=== PATIENT | female | born 1960 | race Caucasian/White ===

== ENCOUNTER 2017-08-01 16:36 | Emergency (ER) | payer OTHER ==
[~2017-08-01] VITALS: Ht 167.6 cm; Wt 69.0 kg
[2017-08-01 16:52] VITALS: BP 149/81; PULSE 83; RESP 17; TEMP 97.8; O2SAT 98
[2017-08-01] MEDS ORDERED: SODIUM CHLOR 0.9% 1000 ML INJ 1,000 ML IV SCH (16:58)
[2017-08-01 17:00] VITALS: RESP 18; O2SAT 98
[2017-08-01] MEDS ORDERED: SODIUM CHLORIDE 0.9% FLUSH 5 ML FLUSH IV FLUSH PRN (17:00)
[2017-08-01] MEDS ORDERED: ONDANSETRON HCL 4 MG/2 ML VIAL IV PUSH ONE ×2 (17:00→22:00)
--- NOTE | 2017-08-01 17:07 | PD ---
HPI Chief Complaint: alcohol intoxication Time Seen by Provider: 16:57 Travel History International Travel<30 days: No Contact w/Intl Traveler<30days: No History of Present Illness HPI Patient comes in by EMS after being found intoxicated at a local motel. Per EMS patient had not checked out of the hotel and the hotel or motel room service supervisor found her unconscious in the room. Per EMS patient admits to drinking a lot of vodka today and was asking to go to [facility]. EMS noted patient's blood sugar was found to be 47 and gave amp of D 10 allowing the patient to become more alert. Patient tells me she is uncertain as to how much she drinks. Denies any history of diabetes but does admit to history of hypertension. Patient is asking for water. Patient is heavily intoxicated with alcohol noted on breath slurring her speech thus limiting H&P. PFSH Past Medical History Anxiety: Yes GERD: Yes Hypertension: Yes Thyroid Disease: Yes Past Surgical History Other Surgery: Yes (breast lift) Social History Alcohol Use: Yes Tobacco Use: No Substance Use: No Allergies-Medications (Allergen,Severity, Reaction): Coded Allergies: Bleach (Sodium Hypochlorite) (Verified Allergy, Intermediate, Hives, ) Reported Meds & Prescriptions Reported Meds & Active Scripts Active Active Prescriptions or Reported Medications Unobtainable Review of Systems ROS Limitations: Intoxication Except as stated in HPI: all other systems reviewed are Neg Physical Exam Exam Limitations: Intoxication Narrative GENERAL: Well-developed, well nourished, in no acute distress, and non-ill appearing. Alcohol noted on breath. SKIN: Focused skin assessment warm and dry. HEAD: Atraumatic. Normocephalic. EYES: Pupils equal and round. EOMI. No scleral icterus. No injection or drainage. ENT: No nasal bleeding or discharge. Mucous membranes pink and moist. NECK: Trachea midline. No JVD. Supple. No nuclear rigidity. CARDIOVASCULAR: Regular rate and rhythm. No murmur appreciated. RESPIRATORY: No accessory muscle use. No respiratory distress. Clear to auscultation. Breath sounds equal bilaterally. GASTROINTESTINAL: Abdomen soft, non-tender, nondistended, and no guarding. Hepatic and splenic margins not palpable. Normal bowel sounds 4. No pulsatile mass. MUSCULOSKELETAL: No obvious deformities. No clubbing. No cyanosis. No edema. Full range of motion. NEUROLOGICAL: Awake and alert. No obvious cranial nerve deficits. Motor grossly within normal limits. Slurring speech. PSYCHIATRIC: Appropriate mood and affect; insight and judgment normal. Data Data Last Documented VS Vital Signs Date Time Temp Pulse Resp B/P (MAP) Pulse Ox O2 Delivery O2 Flow Rate FiO2 08/02/17 03:54 08/01/17 19:25 87 18 97 Room Air 08/01/17 18:21 97.8 Orders Orders Electrocardiogram (08/01/17 16:58) Complete Blood Count With Diff (08/01/17 16:58) Comprehensive Metabolic Panel (08/01/17 16:58) Creatine Kinase (Cpk) (08/01/17 16:58) Prothrombin Time / Inr (Pt) (08/01/17 16:58) Act Partial Throm Time (Ptt) (08/01/17 16:58) Troponin I (08/01/17 16:58) Urinalysis - C+S If Indicated (08/01/17 16:58) Chest, Single Ap (08/01/17 16:58) Ct Brain W/O Iv Contrast(Rout) (08/01/17 16:58) Blood Glucose (08/01/17 16:58) Ecg Monitoring (08/01/17 16:58) Iv Access Insert/Monitor (08/01/17 16:58) Oximetry (08/01/17 16:58) Sodium Chloride 0.9% Flush (Ns Flush) (08/01/17 17:00) Sodium Chlor 0.9% 1000 Ml Inj (Ns 1000 M (08/01/17 16:58) Ondansetron Inj (Zofran Inj) (08/01/17 17:00) Lipase (08/01/17 16:58) Alcohol (Ethanol) (08/01/17 17:09) Drug Screen, Random Urine (08/01/17 17:09) Salicylates (Aspirin) (08/01/17 17:09) Tylenol (Acetaminophen) (08/01/17 17:09) CKMB (08/01/17 17:09) CKMB% (08/01/17 17:09) Magnesium (Mg) (08/01/17 18:47) Calcium Gluconate Inj (Calcium Gluconate (08/01/17 19:00) Thiamine Inj (Thiamine Inj) (08/01/17 19:00) Calcium Gluconate Inj (Calcium Gluconate (08/01/17 20:00) Ondansetron Inj (Zofran Inj) (08/01/17 22:00) Labs Laboratory Tests Test 08/01/17 17:00 08/01/17 17:09 08/01/17 17:40 Salicylates Level 2.2 MG/DL Acetaminophen Level 3.1 MCG/ML Ethyl Alcohol Level 465 MG/DL White Blood Count 5.4 TH/MM3 Red Blood Count 3.46 MIL/MM3 Hemoglobin 9.7 GM/DL Hematocrit 30.3 % Mean Corpuscular Volume 87.6 FL Mean Corpuscular Hemoglobin 28.1 PG Mean Corpuscular Hemoglobin Concent 32.0 % Red Cell Distribution Width 20.4 % Platelet Count 274 TH/MM3 Mean Platelet Volume 7.4 FL Neutrophils (%) (Auto) 80.8 % Lymphocytes (%) (Auto) 14.3 % Monocytes (%) (Auto) 4.4 % Eosinophils (%) (Auto) 0.1 % Basophils (%) (Auto) 0.4 % Neutrophils # (Auto) 4.4 TH/MM3 Lymphocytes # (Auto) 0.8 TH/MM3 Monocytes # (Auto) 0.2 TH/MM3 Eosinophils # (Auto) 0.0 TH/MM3 Basophils # (Auto) 0.0 TH/MM3 CBC Comment DIFF FINAL Differential Comment Prothrombin Time 9.6 SEC Prothromb Time International Ratio 0.9 RATIO Activated Partial Thromboplast Time 24.7 SEC Blood Urea Nitrogen 24 MG/DL Creatinine 0.80 MG/DL Random Glucose 131 MG/DL Total Protein 6.1 GM/DL Albumin 3.0 GM/DL Calcium Level 7.0 MG/DL Alkaline Phosphatase 87 U/L Aspartate Amino Transf (AST/SGOT) 181 U/L Alanine Aminotransferase (ALT/SGPT) 70 U/L Total Bilirubin 0.2 MG/DL Sodium Level 140 MEQ/L Potassium Level 3.6 MEQ/L Chloride Level 103 MEQ/L Carbon Dioxide Level 19.0 MEQ/L Anion Gap 18 MEQ/L Estimat Glomerular Filtration Rate 75 ML/MIN Protein Corrected Calcium 7.5 MG/DL Magnesium Level 2.1 MG/DL Total Creatine Kinase 643 U/L Creatine Kinase MB 5.3 NG/ML Creatine Kinase MB % 0.8 % Troponin I 0.02 NG/ML Lipase 239 U/L Urine Color YELLOW Urine Turbidity CLEAR Urine pH 6.0 Urine Specific [place] 1.011 Urine Protein TRACE mg/dL Urine Glucose (UA) NEG mg/dL Urine Ketones 10 mg/dL Urine Occult Blood SMALL Urine Nitrite NEG Urine Bilirubin NEG Urine Urobilinogen LESS THAN 2.0 MG/DL Urine Leukocyte Esterase NEG Urine RBC 1 /hpf Urine WBC 3 /hpf Urine Squamous Epithelial Cells <1 /hpf Microscopic Urinalysis Comment CATH-CULT NOT IND Urine Opiates Screen NEG Urine Barbiturates Screen NEG Urine Amphetamines Screen NEG Urine Benzodiazepines Screen POS Urine Cocaine Screen NEG Urine Cannabinoids Screen NEG MDM Medical Decision Making Medical Screen Exam Complete: Yes Emergency Medical Condition: Yes Interpretation(s) EKG reviewed by Dr. Logan shows normal sinus rhythm with a ventricular rate is 79. No STEMI. Chest x-ray read by the radiologist shows: Small area of linear atelectasis at the right lung base. The lungs are otherwise clear. CT of the head read by the radiologist shows: Normal examination. Differential Diagnosis Alcohol intoxication, alcohol abuse, electrolyte abnormality, dehydration, pneumonia, intracranial hemorrhage, UTI, other Narrative Course Patient was seen and examined. Initial laboratory looks studies were ordered. Patient was hydrated with IV fluid. 1750 patient reassessed patient's more weak now states that she started drinking yesterday after relapsing. X-ray and laboratory values were reviewed. Patient was given a dose of thiamine and calcium gluconate IV. Patient will be monitored in the emergency department until clinically sober and able to ambulate on their own or until a sober responsible adult comes to pick them up. RN is aware of this. Patient can be reassessed at that time as well. Diagnosis Primary Impression: Alcohol intoxication Qualified Codes: F10.920 - Alcohol use, unspecified with intoxication, uncomplicated Referrals: [facility] Patient Instructions: Alcohol Intoxication (ED), General Instructions Additional Instructions: Follow-up with your primary care physician and/or [facility] for detox. Return to the emergency department for any emergent concerns. Scripts Unable to Obtain Active Prescriptions or Reported Meds Disposition: 01 DISCHARGE HOME Condition: Stable Clark Jerez Aug 01, 2017 17:07
--- NOTE | 2017-08-01 17:29 | RADRPT ---
EXAM DATE/TIME: 08/01/2017 17:13 [facility] COMPARISON: No previous studies available for comparison. INDICATIONS : Wheezing. Short of breath. MEDICAL HISTORY : Unobtainable. SURGICAL HISTORY : Unobtainable. ENCOUNTER: Initial ACUITY: 1 day PAIN SCORE: Non-responsive. LOCATION: Bilateral chest FINDINGS: The heart is normal in size. There is a smaller area of atelectasis at the right lung base. The lungs are otherwise clear. The visualized bony structures are grossly intact. CONCLUSION: 1. Small area of linear atelectasis at the right lung base. The lungs are otherwise clear. Rahul Harrison MD on August 01, 2017 at 17:28 Board Certified Radiologist. This report was verified electronically.
[2017-08-01 17:40] LABS: AUTOMATED NEUTROPHIL # 4.4 TH/MM3 (1.8-7.7); BASOPHIL % 0.4 % (0.0-2.0); EOSINOPHIL % 0.1 % (0.0-4.0); HEMATOCRIT 30.3 % (35.0-46.0); HEMO FLAGS DIFF FINAL; LYMPH % 14.3 % (9.0-44.0); LYMPHOCYTE # 0.8 TH/MM3 (1.0-4.8); MEAN CELL VOLUME 87.6 FL (80.0-100.0); MEAN CORPUSCULAR HEMOGLOBIN 28.1 PG (27.0-34.0); MONO % 4.4 % (0.0-8.0); NEUT % 80.8 % (16.0-70.0); PLATELET COUNT 274 TH/MM3 (150-450); RED BLOOD COUNT 3.46 MIL/MM3 (4.00-5.30); RED CELL DISTRIBUTION WIDTH 20.4 % (11.6-17.2); WHITE BLOOD COUNT 5.4 TH/MM3 (4.0-11.0)
[2017-08-01 17:46] LABS: APTT (PATIENT) 24.7 SEC (24.3-30.1); INTERNATIONAL NORMALIZED RATIO 0.9 RATIO; PROTHROMBIN TIME - PATIENT 9.6 SEC (9.8-11.6)
--- NOTE | 2017-08-01 17:46 | RADRPT ---
EXAM DATE/TIME: 08/01/2017 17:29 [facility] COMPARISON: No previous studies available for comparison. INDICATIONS : Altered mental status. RADIATION DOSE: 56.35 CTDIvol (mGy) MEDICAL HISTORY : None SURGICAL HISTORY : None. ENCOUNTER: Initial ACUITY: 1 day PAIN SCALE: 0/10 LOCATION: cranial TECHNIQUE: Multiple contiguous axial images were obtained of the head. Using automated exposure control and adj ustment of the mA and/or kV according to patient size, radiation dose was kept as low as reasonably a chievable to obtain optimal diagnostic quality images. DICOM format image data is available electro nically for review and comparison. FINDINGS: CEREBRUM: The ventricles are normal for age. No evidence of midline shift, mass lesion, hemorrhage or acute in farction. No extra-axial fluid collections are seen. POSTERIOR FOSSA: The cerebellum and brainstem are intact. The 4th ventricle is midline. The cerebellopontine angle i s unremarkable. EXTRACRANIAL: The visualized portion of the orbits is intact. SKULL: The calvaria is intact. No evidence of skull fracture. CONCLUSION: Normal examination. Micky Brush MD on August 01, 2017 at 17:44 Board Certified Radiologist. This report was verified electronically.
[2017-08-01 17:53] LABS: POTASSIUM 3.6 MEQ/L (3.5-5.1)
[2017-08-01 17:57] LABS: CALCIUM-PROTEIN CORRECTED 7.5 MG/DL (8.5-10.1); TOTAL BILIRUBIN ADULT 0.2 MG/DL (0.2-1.0)
[2017-08-01 18:10] LABS: CKMB 5.3 NG/ML (0.5-3.6)
[2017-08-01 18:21] VITALS: BP 162/78; PULSE 87; RESP 16; TEMP 97.8; O2SAT 99
[2017-08-01 18:24] LABS: BLOOD, URINE SMALL (NEG); GLUCOSE,URINE NEG (NEG); KETONE, URINE 10 mg/dL (NEG); NITRITE,URINE NEG (NEG); SQUAMOUS EPITHELIAL CELL URINE <1 /hpf (0-5); URINE COLOR YELLOW (YELLW/STRAW)
[2017-08-01 18:25] LABS: COMMENT (UR) CATH-CULT NOT IND; CULTURE IF INDICATED CATH CULTURE NOT IND
[2017-08-01 18:48] LABS: ACETAMINOPHEN 3.1 MCG/ML (10.0-30.0)
[2017-08-01] MEDS ORDERED: CALCIUM GLUCONATE 10% 1 GM/10 ML VIAL IV PUSH ONE (19:00)
[2017-08-01] MEDS ORDERED: THIAMINE INJ 100 MG in SODIUM CHLORIDE 0.9% INJ 100 ML IV ONE (19:00)
[2017-08-01 19:25] VITALS: BP 152/76; PULSE 87; RESP 18; O2SAT 97
[2017-08-01] MEDS ORDERED: CALCIUM GLUCONATE INJ 1 GM in SODIUM CHLORIDE 0.9% INJ 100 ML IV ONE (20:00)
--- NOTE | 2017-08-02 15:13 | EKG ---
Date Performed: 08/01/2017 Time Performed: 17:25:06 PTAGE: 56 years EKG: Sinus rhythm NONSPECIFIC T-WAVE ABNORMALITY BORDERLINE ECG NO PREVIOUS TRACING DOCTOR: Rosalia Felder Interpretating Date/Time 08/02/2017 15:11:40
== END 2017-08-02 03:55 | disposition home or self-care (01) ==
LOC: NEPE 16:36
DX: F10.920 Alcohol use, unspecified with intoxication, uncomplicated (principal); E16.2 Hypoglycemia, unspecified; I10 Essential (primary) hypertension; K21.9 Gastro-esophageal reflux disease without esophagitis; E03.9 Hypothyroidism, unspecified; R94.31 Abnormal electrocardiogram [ECG] [EKG]
CPT/HCPCS: 70450; 71010; 80053; 80307; 81001; 82550; 82552; 83690; 83735; 84484; 85025; 85610; 85730; 93005; 96361; 96365; 96375; 99285; J0610; J2405; J3411; J7030

== ENCOUNTER 2017-08-02 03:57 | Emergency (ER) | payer OTHER ==
[~2017-08-02] VITALS: Ht 170.2 cm; Wt 66.0 kg
[2017-08-02 03:59] VITALS: BP 183/92; PULSE 101; RESP 16; TEMP 98.1; O2SAT 97
[2017-08-02] MEDS ORDERED: chlordiazePOXIDE 25 MG CAP PO STA (04:51)
--- NOTE | 2017-08-02 05:07 | PD ---
HPI Chief Complaint: Medical Clearance Time Seen by Provider: 04:24 Travel History International Travel<30 days: No Contact w/Intl Traveler<30days: No Traveled to known affect area: No History of Present Illness HPI The patient is a 56 year old female who presents to the [facility] emergency department with a history of reportedly requesting detoxification. The patient reports that she had been clean and sober for 2 years. She reports that she relapsed 2 weeks ago. She reports that she began to drink quite heavily on Monday night. The patient was seen earlier today requesting detox. The patient was evaluated by Carlos, the physician patent legal assistant and a complete workup was done. The patient was noted by ambulance services and she was transported to this facility to have hypoglycemia with a blood sugar of 47. The patient was given D10. The patient continued to be euglycemic during her emergency department evaluation. She had electrolyte abnormalities that were treated by him. The patient's alcohol level at that time was noted to be 465. The patient reports that she is homeless. The patient additionally reports that she has a history of anxiety disorder. On review of systems, the patient denies any recent fevers, cough, congestion, neck pain, abdominal pain, vomiting , diarrhea, urinary symptoms, or neurologic symptoms. The patient reports that she does have chest pain, palpitations, and shortness of breath whenever she has anxiety attacks. The patient was discharged from the emergency department a few minutes ago and then decided to sign back in to the emergency department as she reports that she has no place to go. [facility] Past Medical History Narrative Medical The patient's past medical history is significant for anxiety disorder, tinnitus , acid reflux, hypertension, hypothyroid disorder. Diminished Hearing: No Hypertension: Yes Medical other: Yes (TINNITUS) ?: Not Menopausal: Yes Past Surgical History Narrative Surgical The patient's past surgical history is significant for an ulnar nerve surgery, breast surgery. Tonsillectomy: Yes Other Surgery: Yes (BREAST REDUCTION) Social History Alcohol Use: Yes (EVERY DAY ) Tobacco Use: No Substance Use: No (PT DENIES ) Allergies-Medications (Allergen,Severity, Reaction): Coded Allergies: Bleach (Sodium Hypochlorite) (Verified Allergy, Intermediate, Hives, ) Reported Meds & Prescriptions Reported Meds & Active Scripts Active Active Prescriptions or Reported Medications Unobtainable Narrative Medication The patient reports that she is normally on propranolol, [place] Thyroid, clonidine Review of Systems General / Constitutional: No: Fever Eyes: No: Visual changes HENT: No: Headaches Cardiovascular: No: Chest Pain or Discomfort Respiratory: No: Shortness of Breath Gastrointestinal: No: Abdominal Pain Genitourinary: No: Dysuria Musculoskeletal: No: Pain Skin: No Rash Neurologic: Positive: Tremor, No: Weakness, Focal Abnormalities, Change in Mentation, Slurred Speech, Sensory Disturbance Psychiatric: Positive: Anxiety, Substance Abuse, No: Depression Endocrine: No: Polydipsia Hematologic/Lymphatic: No: Easy Bruising Physical Exam Narrative General: The patient is well-developed well-nourished female, intermittently tremulous on examination. Head and Neck exam: Head is normocephalic atraumatic. Eyes: EOMI, pupils are equal round and reactive to light. Nose: Midline septum with pink mucous membranes Mouth: Dentition unremarkable. Moist mucus membranes. Posterior oropharynx is not erythematous. No tonsillar hypertrophy. Uvula midline. Airway patent. Neck: No palpable lymphadenopathy. No nuchal rigidity. No thyromegaly. Cardiovascular: Regular rate and rhythm without murmurs, gallops, or rubs. Lungs: Clear to auscultation bilaterally. No wheezes, rhonchi, or rales. Abdomen: Soft, without tenderness to palpation in all 4 quadrants of the abdomen. No guarding, rebound, or rigidity. Normal bowel sounds are audible. No tenderness on palpation of McBurney's point. Extremities: No clubbing, cyanosis, or edema. 2+ pulses in all 4 extremities. Back: No spinous process tenderness to palpation. No costovertebral angle tenderness to palpation. Neurologic Exam: Cranial nerves 2-12 were intact on exam. Strength is 5/5 in all 4 extremities. No sensory deficits noted. Intermittently tremulous on examination. Skin Exam: No rash noted. Intact skin that is warm and dry. Data Data Last Documented VS Vital Signs Date Time Temp Pulse Resp B/P (MAP) Pulse Ox O2 Delivery O2 Flow Rate FiO2 08/02/17 05:36 08/02/17 03:59 98.1 101 16 97 Room Air Orders Orders Chlordiazepoxide (Librium) (08/02/17 04:51) [facility] Medical Decision Making Medical Screen Exam Complete: Yes Emergency Medical Condition: Yes Medical Record Reviewed: Yes Differential Diagnosis Malingering, versus alcohol related withdrawal symptoms, versus anxiety disorder Narrative Course During the course of the patients emergency department visit, the patients history, examination, and differential diagnosis were reviewed with the patient. The patient's electronic medical record was reviewed. A call was placed out to the [facility] to assess whether a female bed was available for alcohol-related detox as the patient is requesting this. There is no detox bed available. I explained to the patient that she would need to call the [facility] on a daily basis to be placed on the waiting list. I explained that the [facility] is not a detoxification center. The patient is repeatedly asking for Librium. The patient was provided Librium 50 mg by mouth 1. Case management was made aware of the patient's situation. The patient Was given information regarding homeless shelters. The patient was given a bus pass. The patient will be discharged. After administration of Librium, the patient continued to rest comfortably. The patient had no tremors noted. The patient was discharged to follow-up with the [facility]. The patient is resting comfortably and feels better, is alert and in no distress. The patients results and examination findings were discussed with the patient. The repeat examination is unremarkable and benign. The history, exam, diagnostic testing, and current condition do not suggest any significant pathology to warrant further testing, continued ED treatment, admission, or surgical evaluation at this point. The vital signs have been stable. The patient does not have uncontrollable pain, intractable vomiting, or other significant symptoms. The patient's condition is stable and appropriate for discharge. The patient will pursue further outpatient evaluation with a primary care physician or other designated or consulting physician as indicated in the discharge instructions. The patient expressed understanding and was agreeable with this plan. Diagnosis Primary Impression: Anxiety disorder Qualified Codes: F41.9 - Anxiety disorder, unspecified Additional Impression: Alcohol abuse [facility] Patient Instructions: Abuse of Alcohol (ED), General Instructions Scripts Unable to Obtain Active Prescriptions or Reported Meds Disposition: 01 DISCHARGE HOME Condition: Stable Negra Patton MD Aug 02, 2017 05:07
== END 2017-08-02 05:55 | disposition home or self-care (01) ==
LOC: NEPE 03:57
DX: F41.9 Anxiety disorder, unspecified (principal); F10.10 Alcohol abuse, uncomplicated; E16.2 Hypoglycemia, unspecified; I10 Essential (primary) hypertension
CPT/HCPCS: 99283